=== PATIENT | female | born 1950 | race Two or more races ===

== ENCOUNTER 2017-09-09 08:33 | Outpatient (CLI) | payer OTHER | END 2017-09-09 08:37 | disposition home or self-care (01) | LOC: SONOGRAMA 08:33 | DX: E04.1 Nontoxic single thyroid nodule (principal) ==

== ENCOUNTER 2021-08-26 11:26 | Outpatient (CLI) | payer OTHER | END 2021-08-26 14:05 | disposition home or self-care (01) | LOC: SONOGRAMA 11:26 | PROVIDERS: ATTEND Pathology Anatomic Pathology & Clinical Pathology | DX: D34 Benign neoplasm of thyroid gland (principal); E04.2 Nontoxic multinodular goiter; E04.8 Other specified nontoxic goiter ==